=== PATIENT | male | born 1960 | race Caucasian/White ===

== ENCOUNTER 2017-01-12 08:59 | Emergency (ER) | payer OTHER ==
[~2017-01-12] VITALS: Ht 172.7 cm; Wt 79.4 kg
[~2017-01-12 08:59] MED LIST: AMIODARONE PO; ASPI81TA27 PO; Atorvastatin Calcium PO; LIS10T PO; MET25T PO; PRAS10TA PO
[2017-01-12 09:18] VITALS: BP 128/88
[2017-01-12] MEDS ORDERED: LIDOCAINE 1% HCL (LOCAL ANESTH.) INJ 20ML MDV IJ ONE (10:00)
[2017-01-12] MEDS ORDERED: cefTRIAXone SOD 1,000 MG VL IM ONE (11:00)
[2017-01-12] MEDS ORDERED: BACITRACIN TOP OINT 1 UD PKG TOP ONE (11:00)
== END 2017-01-12 11:53 | disposition home or self-care (01) ==
LOC: ER 08:59
DX: S81.811A Laceration without foreign body, right lower leg, initial encounter (principal); E78.5 Hyperlipidemia, unspecified; I10 Essential (primary) hypertension; F12.10 Cannabis abuse, uncomplicated; I25.2 Old myocardial infarction; Z90.89 Acquired absence of other organs; Z95.1 Presence of aortocoronary bypass graft; Z79.899 Other long term (current) drug therapy; V28.0XXA Motorcycle driver injured in noncollision transport accident in nontraffic accident, initial encounter; Y93.89 Activity, other specified; Y99.8 Other external cause status; Y92.89 Other specified places as the place of occurrence of the external cause
CPT/HCPCS: 12034; 73590; 96372; 99284; J0696; J2001

== ENCOUNTER 2020-04-20 12:56 | Emergency (ER) | payer MEDICAID, OTHER ==
[~2020-04-20] VITALS: Ht 172.7 cm; Wt 77.1 kg
[~2020-04-20 12:56] MED LIST changes: +AMIO200T5 PO; -AMIODARONE PO; +ASPI-543 PO; -ASPI81TA27 PO
[2020-04-20 13:02] VITALS: BP 118/65
[2020-04-20] MEDS ORDERED: MORPHINE SULFATE 4 MG/ML SYR/VIAL IV ONE (13:15)
[2020-04-20] MEDS ORDERED: NITROGLYCERIN 0.4 MG SL TAB SL ONE (13:15)
[2020-04-20] MEDS ORDERED: ONDANSETRON HCL 4 MG/2 ML VIAL IV ONE (13:15)
[2020-04-20] MEDS ORDERED: ASPirin 81 mg TAB PO ONE ×2 (13:15)
[2020-04-20 15:20] LABS: Albumin 4.2 g/dL (3.4-5.0); Anion Gap 6 (5-15); Blood Urea Nitrogen 15 mg/dL (7-18); Calcium 9.1 mg/dL (8.5-10.1); Carbon Dioxide 26 mmol/L (21-32); Chloride 105 mmol/L (98-107); Glucose 105 mg/dL (74-106); Potassium 4.6 mmol/L (3.5-5.1); Sodium 137 mmol/L (136-145)
[2020-04-20 15:23] LABS: Basophils # (auto) 0 10 ^3/uL (0-0.2); Basophils % (auto) 0.2 % (0.0-2.0); Eosinophils # (auto) 0 10 ^3/uL (0-0.8); Eosinophils % (auto) 0.3 % (0.0-7.0); Hematocrit 44.5 % (41.0-53.0); Hemoglobin 14.9 g/dL (13.5-17.5); Lymphocytes # (auto) 1.2 10 ^3/uL (0.4-5.4); Lymphocytes % (auto) 9.2 % (10.0-50.0); Mean Corpuscular Hemoglobin 31.6 pg (28.0-32.0); Mean Corpuscular Hgb Conc. 33.4 g/dL (32.0-36.0); Mean Corpuscular Volume 94.5 fL (80.0-100.0); Monocytes # (auto) 0.7 10 ^3/uL (0-1.3); Monocytes % (auto) 5.6 % (0.0-12.0); Neutrophils # (auto) 10.9 10 ^3/uL (1.6-8.6); Neutrophils % (auto) 84.7 % (37.0-80.0); Platelet Count (auto) 275 10^3/uL (140-450); Red Blood Cells 4.71 10^6/uL (4.5-5.90); Red Cell Distribution Width 12.8 % (11.8-14.3); White Blood Cell 12.9 10^3/uL (4.4-10.8)
[2020-04-20 15:35] LABS: Alanine Aminotransferase 18 U/L (16-61); Alkaline Phosphatase 63 U/L (45-117); Aspartate Aminotransferase 16 U/L (15-37); BUN/Creatinine Ratio 16.1; Bilirubin, Total 0.5 mg/dL (0.2-1.0); GFR African American 106 mL/min; GFR Non-African American 88 mL/min; Total Protein 7.2 g/dL (6.4-8.2)
[2020-04-20 16:15] LABS: INR 0.95 (0.9-1.15); Partial Thromboplastin Time 23.2 sec (23.0-31.2)
[2020-04-20] MEDS ORDERED: MORPHINE SULF INJ 2 MG/ML SYRINGE 1ML IV PRN (18:30)
[2020-04-20] MEDS ORDERED: NITROGLYCERIN 0.4 MG SL TAB SL PRN (18:30)
== END 2020-04-20 18:22 | disposition left against medical advice (07) ==
LOC: ER 12:56
DX: I24.9 Acute ischemic heart disease, unspecified (principal); I10 Essential (primary) hypertension; I25.2 Old myocardial infarction; E78.5 Hyperlipidemia, unspecified; F12.10 Cannabis abuse, uncomplicated; Z90.89 Acquired absence of other organs; Z53.29 Procedure and treatment not carried out because of patient's decision for other reasons
CPT/HCPCS: 36415; 71045; 80053; 84443; 84484; 85025; 85610; 85730; 93005

== ENCOUNTER 2024-12-14 15:25 | Emergency (ER) | payer OTHER, MEDICAID ==
[~2024-12-14] VITALS: Ht 172.7 cm; Wt 83.0 kg
[~2024-12-14 15:25] MED LIST changes: -AMIO200T5 PO; +AMIO200T50 PO
[2024-12-14 16:43] LABS: Basophils # (auto) 0.1 10 ^3/uL (0-0.2); Basophils % (auto) 0.6 % (0.0-2.0); Eosinophils # (auto) 0 10 ^3/uL (0-0.8); Hematocrit 48.4 % (41.0-53.0); Hemoglobin 16.6 g/dL (13.5-17.5); Lymphocytes # (auto) 0.6 10 ^3/uL (0.4-5.4); Lymphocytes % (auto) 4.5 % (10.0-50.0); Mean Corpuscular Hemoglobin 32.1 pg (28.0-32.0); Mean Corpuscular Hgb Conc. 34.4 g/dL (32.0-36.0); Mean Corpuscular Volume 93.4 fL (80.0-100.0); Monocytes # (auto) 0.8 10 ^3/uL (0-1.3); Monocytes % (auto) 6.2 % (0.0-12.0); Neutrophils # (auto) 12.2 10 ^3/uL (1.6-8.6); Neutrophils % (auto) 88.7 % (37.0-80.0); Nucleated Red Blood Cells % 0.1 %; Platelet Count (auto) 198 10^3/uL (140-450); Red Blood Cells 5.18 10^6/uL (4.5-5.90); Red Cell Distribution Width 12.7 % (11.8-14.3); White Blood Cell 13.7 10^3/uL (4.4-10.8)
[2024-12-14 16:53] LABS: Chloride 100 mmol/L (98-107); Potassium 4.7 mmol/L (3.5-5.1)
[2024-12-14 16:54] LABS: Anion Gap 11 (5-15); Carbon Dioxide 24 mmol/L (20-31)
[2024-12-14 16:55] LABS: Calcium 9.8 mg/dL (8.7-10.4)
[2024-12-14 16:59] LABS: Blood Urea Nitrogen 17 mg/dL (9-23)
[2024-12-14 17:00] LABS: Glucose 110 mg/dL (74-106); Sodium 135 mmol/L (136-145)
[2024-12-14] MEDS ORDERED: BACDST PO (17:46)
--- NOTE | 2024-12-14 17:47 | ED.PDOC ---
History of Present Illness HPI Comments 64-year-old male complaining of right lower leg pain. Patient states pain started two days ago. He has been having intermittent chills and fatigue. Says he noticed two areas of redness and swelling on his right lower leg. He was not remember being bit by anything does not remember any significant wound. States he was the leg is swollen and itching. Does report some pain. No drainage noted. Chief Complaint: Body Pain Time Seen by MD: 15:43 Primary Care Provider: ARVIN Reviewed Notes: Nurses Notes Allergies: Coded Allergies: NO KNOWN ALLERGIES (Unverified , 08/15/14) Home Meds Active Scripts Amiodarone Hcl (Cordarone) 200 Mg Tb, 200 MG PO Q12HR, #60 TAB Prov:WES WILKES M.D. 08/17/14 Lisinopril (ZESTRIL TABLET) 10 Mg Tb, 10 MG PO BID, #60 TAB Prov:WES WILKES M.D. 08/17/14 [Atorvastatin Calcium] 20 MG TB No Conflict Check, 20 MG PO HS, #30 TAB Prov:WES WILKES M.D. 08/17/14 Metoprolol Tartrate (Lopressor) 25 Mg Tb, 25 MG PO BID, #60 TAB Prov:WES WILKES M.D. 08/17/14 Reported Medications Lisinopril (ZESTRIL TABLET) 10 Mg Tb, 20 MG PO DAILY 04/05/15 Lisinopril (ZESTRIL TABLET) 10 Mg Tb, 1 TAB PO DAILY, #30 TAB 5 Refills 04/05/15 Prasugrel Hydrochloride (EFFIENT TABLET) 10 Mg Tb, 1 TAB PO DAILY, #90 TAB 1 Refill 04/05/15 Aspirin (Aspir-Low) 81 Mg Tab, 81 MG PO DAILY for 30 Days, MG 04/05/15 Information Source: Patient Mode of Arrival: Ambulatory Past Medical History PAST MEDICAL HISTORY: High Lipids, HTN, [place] Surgical History: Tonsillectomy Family History Family History: No family hx of DM, No family hx of Heart courtney Social History Smoker: Non-Smoker Alcohol: Denies ETOH Use Drugs: Marijuana Lives In: Home Constitutional: denies: chills, diaphoresis, fatigue, fever, malaise, sweats, weakness, others EENTM: denies: blurred vision, double vision, ear bleeding, ear discharge, ear drainage, ear pain, ear ringing, eye pain, eye redness, hearing loss, mouth pain, mouth swelling, nasal discharge, nose bleeding, nose congestion, nose pain, photophobia, tearing, throat pain, throat swelling, voice changes, others Respiratory: denies: cough, hemoptysis, orthopnea, SOB at rest, shortness of breath, SOB with excertion, stridor, wheezing, others Cardiovascular: denies: chest pain, dizzy spells, diaphoresis, Dyspnea on exertion, edema, irregular heart beat, left arm pain, lightheadedness, palpitations, PND, syncope, others Gastrointestinal: denies: abdomen distended, abdominal pain, blood streaked bowels, constipated, diarrhea, dysphagia, difficulty swallowing, hematemesis, melena, nausea, poor appetite, poor fluid intake, rectal bleeding, rectal pain, vomiting, others Genitourinary: denies: burning, dysuria, flank pain, frequency, hematuria, i ncontinence, penile discharge, penile sore, pain, testicle pain, testicle swelling, urgency, others Neurological: denies: dizziness, fainting, headache, left sided numbness, left sided weakness, numbness, paresthesia, pre-existing deficit, right sided numbness, right sided weakness, seizure, speech problems, tingling, tremors, weakness, others Musculoskeletal: denies: back pain, gout, joint pain, joint swelling, muscle pain, muscle stiffness, neck pain, others Integumetry: reports: lesions, rash, wounds; denies: bruises, change in color, change in hair/nails, dryness, laceration, lumps, others Physical Exam General Appearance: No Apparent Distress, Normal HEENT: Normal ENT Inspection, Pharynx Normal, TMs Normal Neck: Full Range of Motion, Non-Tender, Normal, Normal Inspection Respiratory: Chest Non-Tender, Lungs Clear, No Accessory Muscle Use, No Respiratory Distress, Normal Breath Sounds Cardiovascular: No Edema, No JVD, No Murmur, No Gallop, Normal Peripheral Pulses, Regular Rate/Rhythm Breast Exam: Deferred Gastrointestinal: No Organomegaly, Non Tender, No Pulsatile Mass, Normal Bowel Sounds, Soft Genitalia: Deferred Pelvic: Deferred Rectal: Deferred Extremities: No calf tenderness, Normal capillary refill, No pedal edema, Swelling (Swelling noted to the right lower extremity. There are two areas of redness with diffuse redness, no obvious lesion in the center. Areas are warm to the touch and tender to palpation. Erythemic measures approximate 5 cm x 5 cm) Musculoskeletal : Apperance: Normal Neurologic: Alert, real estate accountant II-XII nml as Tested, No Motor Deficits, Normal Affect, Normal Mood, No Sensory Deficits Cerebellar Function: Normal Reflexes: Normal Skin: Dry, Normal Color, Warm Lymphatic: No Adenopathy Was a procedure done? Was a procedure done?: No Differential Dx Considerations may include: Cellulitis, DVT, X-Ray, Labs, Meds, VS Vital Signs Date Time Temp Pulse Resp B/P (MAP) Pulse Ox O2 Delivery O2 Flow Rate FiO2 12/14/24 15:31 99.0 72 20 103/80 (88) 95 99.0 Lab Test 12/14/24 16:32 Range/Units White Blood Count 13.7 H 4.4-10.8 10^3/uL Red Blood Count 5.18 4.5-5.90 10^6/uL Hemoglobin 16.6 13.5-17.5 g/dL Hematocrit 48.4 41.0-53.0 % Mean Corpuscular Volume 93.4 80.0-100.0 fL Mean Corpuscular Hemoglobin 32.1 H 28.0-32.0 pg Mean Corpuscular Hemoglobin Concent 34.4 32.0-36.0 g/dL Red Cell Distribution Width 12.7 11.8-14.3 % Platelet Count 198 140-450 10^3/uL Mean Platelet Volume 7.8 6.9-10.8 fL Neutrophils (%) (Auto) 88.7 H 37.0-80.0 % Lymphocytes (%) (Auto) 4.5 L 10.0-50.0 % Monocytes (%) (Auto) 6.2 0.0-12.0 % Eosinophils (%) (Auto) 0.0 0.0-7.0 % Basophils (%) (Auto) 0.6 0.0-2.0 % Neutrophils # (Auto) 12.2 H 1.6-8.6 10 ^3/uL Lymphocytes # (Auto) 0.6 0.4-5.4 10 ^3/uL Monocytes # (Auto) 0.8 0-1.3 10 ^3/uL Eosinophils # (Auto) 0 0-0.8 10 ^3/uL Basophils # (Auto) 0.1 0-0.2 10 ^3/uL Nucleated Red Blood Cells 0.1 % Sodium Level 135 L 136-145 mmol/L Potassium Level 4.7 3.5-5.1 mmol/L Chloride Level 100 98-107 mmol/L Carbon Dioxide Level 24 20-31 mmol/L Anion Gap 11 5-15 Blood Urea Nitrogen 17 9-23 mg/dL Creatinine 1.06 0.700-1.30 mg/dL Glomerular Filtration Rate Calc 77 >90 mL/min BUN/Creatinine Ratio 16.0 10.0-20.0 Serum Glucose 110 H 74-106 mg/dL Calcium Level 9.8 8.7-10.4 mg/dL X-Ray, Labs, Meds, VS Comment Imaging: X-rays and CT scans were reviewed and interpreted by this provider, imaging shows no fractures and no pathological disease. Pending radiology review. Laboratory: Labs reviewed and interpreted by this provider. No significant abnormalities noted. Patient has prior medical visits reviewed. Med reconciliation performed Vital signs reviewed Time of 1ST Reevaluation: 17:46 Reevaluation 1ST: Improved Patient Education/Counseling: Diagnosis, Treatment, Need For Follow Up (Follow up in the emergency department in the next 24-48 hours if symptoms worsen. It was advised to follow up with your primary care doctor in the next 3-4 days for further evaluation.) Family Education/Counseling: Diagnosis, Treatment Departure 1 Departure Time of Disposition: 17:46 Impression: Primary Impression: Cellulitis Qualified Codes: L03.115 - Cellulitis of right lower limb Disposition: HOME / SELF CARE / HOMELESS Condition: Fair e-Prescriptions Sulfamethoxazole W/Trimethopri (Bactrim Ds Tablet) 1 Tab Tb 1 TAB PO BID for 7 Days, #14 TAB Prov: AMRITA PEREZ 12/14/24 Discharged With: Self Critical Care Note Critical Care Time?: No Stability Stability form required: No Heart Score Heart Score: Heart Score Response (Comments) Value History N/A 0 EKG N/A 0 Age N/A 0 Risk Factors N/A 0 Troponin N/A 0 Total 0 AMRITA PEREZP December 14, 2024 17:47
[2024-12-14 18:34] VITALS: BP 138/78; PULSE 89; RESP 16; TEMP 98.5; O2SAT 98
[2024-12-14] MEDS: KETOROLAC TROMETH 30 MG/ML 1ML VIAL IM ONE (18:34)
== END 2024-12-14 18:44 | disposition home or self-care (01) ==
LOC: ER 15:29
DX: L03.115 Cellulitis of right lower limb (principal); F12.90 Cannabis use, unspecified, uncomplicated; E78.5 Hyperlipidemia, unspecified; I10 Essential (primary) hypertension; I25.2 Old myocardial infarction; Z90.89 Acquired absence of other organs; Z79.899 Other long term (current) drug therapy; Z79.82 Long term (current) use of aspirin; Z79.02 Long term (current) use of antithrombotics/antiplatelets
CPT/HCPCS: 36415; 80048; 85025; 96372; 99283; J1885

== ENCOUNTER 2024-12-24 04:52 | Inpatient (IN) | payer OTHER, MEDICAID ==
[~2024-12-24] VITALS: Ht 172.7 cm; Wt 84.4 kg
[~2024-12-24 04:52] MED LIST changes: +BACDST PO
--- NOTE | 2024-12-24 05:09 | ED.PDOC ---
Musculoskeletal HPI Comments 64 year old male came to ER for right lower extremity swelling. Patient was seen here 10 days ago, and was diagnosed of cellulitis of the right lower leg. Patient was sent home with Bactrim ds. Patient has finished taking the medications, however cellulitis, swelling of redness of the right lower leg has persisted. Noted also to have headaches but denies any fever. Chief Complaint: Lower extremity Time Seen by MD: 05:08 Primary Care Provider: ARVIN Reviewed Notes: Nurses Notes Allergies: Coded Allergies: NO KNOWN ALLERGIES (Unverified , 08/15/14) Home Meds Active Scripts Sulfamethoxazole W/Trimethopri (Bactrim Ds Tablet) 1 Tab Tb, 1 TAB PO BID for 7 Days, #14 TAB Prov:AMRITA PEREZ 12/14/24 Amiodarone Hcl (Cordarone) 200 Mg Tb, 200 MG PO Q12HR, #60 TAB Prov:WES WILKES M.D. 08/17/14 Lisinopril (ZESTRIL TABLET) 10 Mg Tb, 10 MG PO BID, #60 TAB Prov:WES WILKES M.D. 08/17/14 [Atorvastatin Calcium] 20 MG TB No Conflict Check, 20 MG PO HS, #30 TAB Prov:WES WILKES M.D. 08/17/14 Metoprolol Tartrate (Lopressor) 25 Mg Tb, 25 MG PO BID, #60 TAB Prov:WES WILKES M.D. 08/17/14 Reported Medications Lisinopril (ZESTRIL TABLET) 10 Mg Tb, 20 MG PO DAILY 04/05/15 Lisinopril (ZESTRIL TABLET) 10 Mg Tb, 1 TAB PO DAILY, #30 TAB 5 Refills 04/05/15 Prasugrel Hydrochloride (EFFIENT TABLET) 10 Mg Tb, 1 TAB PO DAILY, #90 TAB 1 Refill 04/05/15 Aspirin (Aspir-Low) 81 Mg Tab, 81 MG PO DAILY for 30 Days, MG 04/05/15 Information Source: Patient Mode of Arrival: Ambulatory Location: Right Extremity Location: Leg Timing: Days Prehospital treatment: None Severity: Moderate Able to Move Extremity: Yes Bear Weight: Limited Pain: Moderate Hand Dominance: Right Mechanism: Spontaneous Circumstances: Spontaneous Onset of Symptoms: Spontaneous Symptoms: Swelling, Pain Associated signs and symptoms: Leg pain (Right) Past Medical History PAST MEDICAL HISTORY: High Lipids, HTN, [place] Surgical History: Tonsillectomy Family History Family History: No family hx of DM, No family hx of Heart courtney Social History Smoker: Non-Smoker Alcohol: Denies ETOH Use Drugs: Marijuana Lives In: Home Constitutional: denies: chills, diaphoresis, fatigue, fever, malaise, sweats, weakness, others EENTM: denies: blurred vision, double vision, ear bleeding, ear discharge, ear drainage, ear pain, ear ringing, eye pain, eye redness, hearing loss, mouth pain, mouth swelling, nasal discharge, nose bleeding, nose congestion, nose pain, photophobia, tearing, throat pain, throat swelling, voice changes, others Respiratory: denies: cough, hemoptysis, orthopnea, SOB at rest, shortness of breath, SOB with excertion, stridor, wheezing, others Cardiovascular: denies: chest pain, dizzy spells, diaphoresis, Dyspnea on exertion, edema, irregular heart beat, left arm pain, lightheadedness, palpitations, PND, syncope, others Gastrointestinal: denies: abdomen distended, abdominal pain, blood streaked bowels, constipated, diarrhea, dysphagia, difficulty swallowing, hematemesis, melena, nausea, poor appetite, poor fluid intake, rectal bleeding, rectal pain, vomiting, others Genitourinary: denies: burning, dysuria, flank pain, frequency, hematuria, incontinence, penile discharge, penile sore, pain, testicle pain, testicle swelling, urgency, others Neurological: denies: dizziness, fainting, headache, left sided numbness, left sided weakness, numbness, paresthesia, pre-existing deficit, right sided num bness, right sided weakness, seizure, speech problems, tingling, tremors, weakness, others Musculoskeletal: reports: muscle pain (Right lower leg swelling and redness); denies: back pain, gout, joint pain, joint swelling, muscle stiffness, neck pain, others Integumetry: denies: bruises, change in color, change in hair/nails, dryness, laceration, lesions, lumps, rash, wounds, others Allergic/Immunocompromised: denies: Difficulty Healing, Frequent Infections, Hives, Itching, others Hematologic/Lymphatic: denies: anemia, blood clots, easy bleeding, easy bruising, swollen glands, others Endocrine: denies: excessive hunger, excessive sweating, excessive thirst, excessive urination, flushing, intolerance to cold, intolerance to heat, unexplained weight gain, unexplained weight loss, others Psychiatric: denies: anxiety, bipolar disorder, depression, hopeless, panic disorder, schizophrenia, sleepless, suicidal, others Physical Exam General Appearance: No Apparent Distress, Normal HEENT: Normal ENT Inspection, Pharynx Normal, TMs Normal Neck: Full Range of Motion, Non-Tender, Normal, Normal Inspection Respiratory: Chest Non-Tender, Lungs Clear, No Accessory Muscle Use, No Respiratory Distress, Normal Breath Sounds Cardiovascular: No Edema, No JVD, No Murmur, No Gallop, Normal Peripheral Pulses, Regular Rate/Rhythm Breast Exam: Deferred Gastrointestinal: No Organomegaly, Non Tender, No Pulsatile Mass, Normal Bowel Sounds, Soft Genitalia: Deferred Pelvic: Deferred Rectal: Deferred Extremities: No calf tenderness, Normal capillary refill, Normal inspection, Normal range of motion, Non-tender, No pedal edema Musculoskeletal : Apperance: Normal Neurologic: Alert, 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 Was a procedure done?: No Differential Diagnosis EXT Differential Diagnosis: Cellulitis, Deep Vein Thrombosis, Septic X-Ray, Labs, Meds, VS Vital Signs Date Time Temp Pulse Resp B/P (MAP) Pulse Ox O2 Delivery O2 Flow Rate FiO2 12/24/24 05:07 97.8 72 16 158/100 (119) 97 97.8 Lab Test 12/24/24 05:12 Range/Units White Blood Count Pending Red Blood Count Pending Hemoglobin Pending Hematocrit Pending Mean Corpuscular Volume Pending Mean Corpuscular Hemoglobin Pending Mean Corpuscular Hemoglobin Concent Pending Red Cell Distribution Width Pending Platelet Count Pending Mean Platelet Volume Pending Neutrophils (%) (Auto) Pending Lymphocytes (%) (Auto) Pending Monocytes (%) (Auto) Pending Basophils (%) (Auto) Pending Neutrophils # (Auto) Pending Lymphocytes # (Auto) Pending Monocytes # (Auto) Pending Prothrombin Time Pending Prothrombin Time INR Pending Activated Partial Thromboplast Time Pending Sodium Level Pending Potassium Level Pending Chloride Level Pending Carbon Dioxide Level Pending Anion Gap Pending Blood Urea Nitrogen Pending Creatinine Pending Glomerular Filtration Rate Calc Pending BUN/Creatinine Ratio Pending Serum Glucose Pending Lactic Acid Level Pending Calcium Level Pending Total Bilirubin Pending Aspartate Amino Transferase (AST) Pending Alanine Aminotransferase (ALT) Pending Alkaline Phosphatase Pending Total Protein Pending Albumin Pending Time of 1ST Reevaluation: 05:05 Reevaluation 1ST: Unchanged Patient Education/Counseling: Diagnosis, Treatment Family Education/Counseling: No Family Present Sepsis focused exam: focus exam completed (In the initial resuscitation at least 30 mL/kg of IV crystalloid fluid was NOT given within the first 3 hr due to concerns of fluid overload), time: (529) Sepsis Sepsis Reasesment Focused Exam Sepsis focused exam: focus exam completed (In the initial resuscitation at least 30 mL/kg of IV crystalloid fluid was NOT given within the first 3 hr due to concerns of fluid overload), time: (539) Departure 1 Departure Time of Disposition: 06:47 Impression: Primary Impression: Cellulitis Disposition: 09 ADMITTED INPATIENT Condition: Guarded Discharged With: Self Comments Right Lower Extremity Cellulitis Chief Complaint: Right lower leg swelling, redness, and pain History of Present Illness: 64-year-old male presents with a 2-week history of right lower extremity swelling below the knee with associated redness and tenderness. Patient recently completed a course of oral antibiotics (Bactrim DS) as an outpatient, but continues to have significant swelling, pain, and tenderness of the right lower leg. There is a small area of skin breakdown noted on the right distal lower leg. Symptoms have persisted despite completion of outpatient oral antibiotic therapy. Review of Systems: Limited review of systems due to focused evaluation. 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 Allergies: No known allergies documented Past Medical History: Hypertension Congestive Heart Failure (CHF) History of cardiac stents Physical Exam: Right Lower Extremity: - Significant swelling below the knee - Erythema and induration present - Tenderness to palpation - Small area of skin breakdown on right distal lower leg Lab Results: WBC: 8.3 (normal) Imaging and Other Relevant Results: No imaging studies documented Medical Decision Making: Summary Statement: 64-year-old male with significant medical history of CHF and cardiac stents presents with worsening right lower extremity cellulitis despite outpatient oral antibiotic therapy. Problem List: 1. Complicated cellulitis of right lower leg 2. Hypertension 3. CHF 4. History of cardiac stents Differential Diagnosis: 1. Cellulitis 2. Deep vein thrombosis 3. Lymphedema 4. Venous stasis dermatitis ED Course: Patient received IV fluids, IV Zosyn, and IV vancomycin. Given failure of outpatient therapy and presence of skin breakdown, decision made to admit for IV antibiotics and wound care. Assessment and Plan: 1. Complicated cellulitis of right lower extremity: - Failed outpatient oral antibiotic therapy - Initiated broad-spectrum IV antibiotics (Zosyn and vancomycin) - Admit to hospital for continued IV antibiotics and wound care - Monitor for clinical improvement 2. Cardiovascular comorbidities (HTN, CHF, h/o cardiac stents): - Continue home medications - Monitor fluid status given CHF history Billing Information: ICD-10: L03.115 - Cellulitis of right lower limb Critical Care Note Critical Care Time?: No Stability Stability form required: No Heart Score Heart Score: Heart Score Response (Comments) Value History N/A 0 EKG N/A 0 Age N/A 0 Risk Factors N/A 0 Troponin N/A 0 Total 0 I personally scribed for REVA JAMISON MD ([email or web address]) on 12/24/24 at 05:09. Electronically submitted by Keaton Mckeon ([email or web address]). REVA JAMISON MD December 24, 2024 05:09
--- NOTE | 2024-12-24 05:32 | DVH ---
XY R TIB FIB XRAY INDICATION: pain swelling redness TECHNICAL DATA: Frontal and lateral views were obtained of the right tibia/ fibula. COMPARISON: None FINDINGS: There is no osseous abnormality. Medial compartment joint space narrowing. Soft tissues are normal. IMPRESSION: 1. No acute fracture or dislocation.
[2024-12-24 05:42] LABS: Albumin 4.2 g/dL (3.2-4.8); Alkaline Phosphatase 86 U/L (46-116); Anion Gap 10 (5-15); BUN/Creatinine Ratio 17.1 (10.0-20.0); Blood Urea Nitrogen 14 mg/dL (9-23); Carbon Dioxide 26 mmol/L (20-31); Chloride 105 mmol/L (98-107); Glucose 97 mg/dL (74-106); Potassium 4.1 mmol/L (3.5-5.1); Sodium 141 mmol/L (136-145); Total Protein 6.6 g/dL (5.7-8.2)
[2024-12-24 05:43] LABS: INR 0.94 (0.9-1.15)
[2024-12-24 05:48] LABS: Basophils # (auto) 0.2 10 ^3/uL (0-0.2); Basophils % (auto) 2.9 % (0.0-2.0); Eosinophils # (auto) 0.4 10 ^3/uL (0-0.8); Eosinophils % (auto) 5.3 % (0.0-7.0); Hematocrit 44.2 % (41.0-53.0); Hemoglobin 15.2 g/dL (13.5-17.5); Lymphocytes # (auto) 2.5 10 ^3/uL (0.4-5.4); Lymphocytes % (auto) 30.3 % (10.0-50.0); Mean Corpuscular Hemoglobin 31.6 pg (28.0-32.0); Mean Corpuscular Hgb Conc. 34.3 g/dL (32.0-36.0); Mean Corpuscular Volume 92.1 fL (80.0-100.0); Monocytes # (auto) 0.9 10 ^3/uL (0-1.3); Monocytes % (auto) 11.1 % (0.0-12.0); Neutrophils # (auto) 4.2 10 ^3/uL (1.6-8.6); Neutrophils % (auto) 50.4 % (37.0-80.0); Nucleated Red Blood Cells % 0.1 %; Platelet Count (auto) 468 10^3/uL (140-450); White Blood Cell 8.3 10^3/uL (4.4-10.8)
[2024-12-24 05:52] LABS: Alanine Aminotransferase 53 U/L (7-40); Aspartate Aminotransferase 44 U/L (13-40); Bilirubin, Total 0.3 mg/dL (0.2-1.0); Calcium 8.6 mg/dL (8.7-10.4)
[2024-12-24] MEDS: SODIUM CHLORIDE 0.9% 1,000 ML IVB ONE (05:55)
[2024-12-24] MEDS: PIPERACILLIN-TAZOB 3.375GM 100 ML IV ONE (05:55)
--- NOTE | 2024-12-24 06:59 | DVH ---
EXAM: US Duplex Right Lower Extremity Veins CLINICAL INDICATION: Right calf pain and swelling TECHNIQUE: Real-time duplex ultrasound scan of the right lower extremity veins integrating B-mode tw o-dimensional vascular structure, Doppler spectral analysis, color flow Doppler imaging and compressi on. COMPARISON: None FINDINGS: DEEP VEINS: Unremarkable. No DVT in the visualized common femoral, femoral, proximal deep femoral or popliteal veins. The veins demonstrate normal color flow, are normally compressible, with normal phasic flow and/or augmentation response. SUPERFICIAL VEINS: Unremarkable. No thrombus in the visualized great saphenous vein. SOFT TISSUES: No acute findings. No popliteal cyst. OTHER FINDINGS: . IMPRESSION: No DVT.
[2024-12-24 07:24] VITALS: PULSE 68; RESP 12; O2SAT 98
[2024-12-24] MEDS ORDERED: CARV3.1240 PO (07:29)
[2024-12-24] MEDS ORDERED: BENA-36 PO (07:29)
[2024-12-24] MEDS: VANCOMYCIN 1GM/200ML PM 200 ML IV ONE (07:29)
[2024-12-24] MEDS ORDERED: EMPA1TAB PO (07:29)
[2024-12-24] MEDS ORDERED: VANCOMYCIN PER PHARMACY 0 MG IV SCH (07:30)
[2024-12-24] MEDS ORDERED: HYDROcodone-ACET 5/325MG TAB PO PRN (07:30)
[2024-12-24] MEDS ORDERED: ONDANSETRON HCL 4 MG/2 ML VIAL IV PRN (07:30)
[2024-12-24] MEDS ORDERED: MORPHINE SULFATE INJ 2 MG/ml SYRG IV PRN (07:30)
--- NOTE | 2024-12-24 07:37 | DVHHP2 ---
History of Present Illness Reason for Visit: Right lower extremity pain History of Present Illness Adalberto Austin is a 64-year-old male with past medical history of CAD status post PTCA x3 in 2014, IA, hypertension, hyperlipidemia,? Diabetes, tonsillectomy, and back surgery who presents to the ED with right lower extremi ty redness and swelling. Patient reports that he was here 10 days ago for the same issue. He states that it started when he had gone into the [facility] at 12:00 p.m. fitness with a cut on his leg. He does state that the pain is 1/10 but does go up to a 3 or 4. He states that he is able to still ambulate with no issues. He also reports that he is compliant with his medications. Patient denies any chest pain, shortness of breath, fever, chills, lightheadedness, weakness, dizziness, urinary symptoms, abdominal pain, nausea, vomiting, diarrhea, recent trauma or injury, recent sick contacts, or recent travels. Patient reports that he is disabled due to his back and knees. Cardiovascular: CAD, HTN, IA, hyperipidemia Endocrine: Diabetes Past Surgical History: Other (PTCA x3 in 2015 and back surgery), Tonsillectomy Family History: DM, Other (Dad with heart disease and mom with diabetes) Smoke: No ALCOHOL: none Drugs: Other (Quit marijuana 5 years ago) Lives: Alone Domestic Violence: Neg Review of Systems Musculoskeletal: leg pain Allergies: Coded Allergies: NO KNOWN ALLERGIES (Unverified , 08/15/14) Medications Current Medications Medications Dose Ordered Sig/Amado Route Start Time Stop Time Status Last Admin Dose Admin Acetaminophen/ Hydrocodone Bitart 1 tab Q4HP PRN PO 12/24/24 07:30 UNV Ondansetron HCl 4 mg Q4HP PRN IV 12/24/24 07:30 UNV Enoxaparin Sodium 40 mg DAILY SC 12/24/24 10:00 UNV Acetaminophen 650 mg Q6HP PRN PO 12/24/24 07:30 UNV Morphine Sulfate 2 mg Q4HPRN PRN IV 12/24/24 07:30 UNV Vancomycin HCl 0 ml @ 0 mls/hr UD IV 12/24/24 07:30 UNV Exam Vital Signs Vital Signs Date Time Temp Pulse Resp B/P (MAP) Pulse Ox O2 Delivery O2 Flow Rate FiO2 12/24/24 07:24 68 12 98 Room Air* 0 21 12/24/24 07:23 98.1 154/89 (110) 98.1 General Appearance: Alert, Oriented X3, Cooperative, No acute distress HEENT: Atraumatic, PERRLA, EOMI, Mucous membr. moist/pink Respiratory: Clear to auscultation, Normal air movement Cardiovascular: Regular rate, Normal S1, Normal S2, No murmurs Abdominal: Normal bowel sounds, Soft, No tenderness, No hepatospenomegaly, No masses Extremities: No clubbing, No cyanosis, Other (Right lower extremity erythema) Neuro: Normal speech, Strength at 5/5 X4 ext, Normal tone, Sensation intact Psych/Mental Status: Mental status NL, Mood NL Labs/Xrays Labs Test 12/24/24 05:12 Range/Units White Blood Count 8.3 4.4-10.8 10^3/uL Red Blood Count 4.80 4.5-5.90 10^6/uL Hemoglobin 15.2 13.5-17.5 g/dL Hematocrit 44.2 41.0-53.0 % Mean Corpuscular Volume 92.1 80.0-100.0 fL Mean Corpuscular Hemoglobin 31.6 28.0-32.0 pg Mean Corpuscular Hemoglobin Concent 34.3 32.0-36.0 g/dL Red Cell Distribution Width 13.0 11.8-14.3 % Platelet Count 468 H 140-450 10^3/uL Mean Platelet Volume 7.0 6.9-10.8 fL Neutrophils (%) (Auto) 50.4 37.0-80.0 % Lymphocytes (%) (Auto) 30.3 10.0-50.0 % Monocytes (%) (Auto) 11.1 0.0-12.0 % Eosinophils (%) (Auto) 5.3 0.0-7.0 % Basophils (%) (Auto) 2.9 H 0.0-2.0 % Neutrophils # (Auto) 4.2 1.6-8.6 10 ^3/uL Lymphocytes # (Auto) 2.5 0.4-5.4 10 ^3/uL Monocytes # (Auto) 0.9 0-1.3 10 ^3/uL Eosinophils # (Auto) 0.4 0-0.8 10 ^3/uL Basophils # (Auto) 0.2 0-0.2 10 ^3/uL Nucleated Red Blood Cells 0.1 % Prothrombin Time 10.0 9.3-11.8 sec Prothrombin Time INR 0.94 0.9-1.15 Activated Partial Thromboplast Time 25.0 24.5-34.5 SEC Sodium Level 141 136-145 mmol/L Potassium Level 4.1 3.5-5.1 mmol/L Chloride Level 105 98-107 mmol/L Carbon Dioxide Level 26 20-31 mmol/L Anion Gap 10 5-15 Blood Urea Nitrogen 14 9-23 mg/dL Creatinine 0.82 0.700-1.30 mg/dL Glomerular Filtration Rate Calc 97 >90 mL/min BUN/Creatinine Ratio 17.1 10.0-20.0 Serum Glucose 97 74-106 mg/dL Lactic Acid Level 1.8 0.4-2.0 mmol/L Calcium Level 8.6 L 8.7-10.4 mg/dL Total Bilirubin 0.3 0.2-1.0 mg/dL Aspartate Amino Transferase (AST) 44 H 13-40 U/L Alanine Aminotransferase (ALT) 53 H 7-40 U/L Alkaline Phosphatase 86 46-116 U/L Total Protein 6.6 5.7-8.2 g/dL Albumin 4.2 3.2-4.8 g/dL XY R TIB FIB XRAY INDICATION: pain swelling redness TECHNICAL DATA: Frontal and lateral views were obtained of the right tibia/ fibula. COMPARISON: None FINDINGS: There is no osseous abnormality. Medial compartment joint space narrowing. Soft tissues are normal. IMPRESSION: 1. No acute fracture or dislocation. EXAM: US Duplex Right Lower Extremity Veins CLINICAL INDICATION: Right calf pain and swelling TECHNIQUE: Real-time duplex ultrasound scan of the right lower extremity veins integrating B-mode two-dimensional vascular structure, Doppler spectral analysis, color flow Doppler imaging and compression. COMPARISON: None FINDINGS: DEEP VEINS: Unremarkable. No DVT in the visualized common femoral, femoral, proximal deep femoral or popliteal veins. The veins demonstrate normal color flow, are normally compressible, with normal phasic flow and/or augmentation response. SUPERFICIAL VEINS: Unremarkable. No thrombus in the visualized great saphenous vein. SOFT TISSUES: No acute findings. No popliteal cyst. OTHER FINDINGS: . IMPRESSION: No DVT. Assessment/Plan Assessment/Plan Assessment Lower extremity pain and swelling likely cellulitis History of CAD status post PTCA x3 in 2015 History of IA History of hypertension History of hyperlipidemia ? History of diabetes History of tonsillectomy History of back surgery History of marijuana use quit 5 years ago Plan Admit to med surge Antiemetics Pain management IV antibiotics-vancomycin +Zosyn NS given ED Right lower extremity venous ultrasound noted X-ray right tib-fib noted Lactic noted Blood cultures PT/PTT Hemoglobin A1c Wound culture with Gram stain Diet Home medications reconciled DVT prophylaxis-patient on Prasugrel PUD prophylaxis-not indicated no history of GERD or GI bleed Discussed plan of care with patient and nurse Counseled on continuance of cessation of marijuana use Plan discussed with: Patient My Orders Orders - ELI CRAIG Procedure Category Date Status Time Admit ADMIT 12/24/24 Transmitted 07:26 Allergies JULIANNE 12/24/24 In Process 07:26 Code Status CODE 12/24/24 Transmitted 07:26 Hydrocodone-Acet PHA 12/24/24 Logged 5/325mg Tab ([place] 07:30 Ondansetron Hcl PHA 12/24/24 Logged (Zofran) 07:30 Enoxaparin Sodium PHA 12/24/24 Logged (Lovenox) 10:00 Complete Blood Count LAB 12/25/24 Verified 04:00 Comprehensive LAB 12/25/24 Verified Metabolic Panel 04:00 Acetaminophen Tablet PHA 12/24/24 Logged (Tylenol Tablet) 07:30 Morphine Sulfate PHA 12/24/24 Logged Injection 07:30 Hemoglobin A1c LAB 12/24/24 Logged 07:26 Vancomycin Per PHA 12/24/24 Logged Pharmacy 07:30 Zosyn Extended PHA 12/24/24 Transmitted Infusion 14:00 Wound Culture W/ Gs JOSE 12/24/24 Logged 07:26 Amiodarone Tablet PHA 12/24/24 Verified (Cordarone Tablet) 10:00 Aspirin Enteric PHA 12/24/24 Verified Coated Tablet 10:00 Prasugrel Hcl Tablet PHA 12/24/24 Verified (Effient Tablet) 10:00 (Nf) [Atorvastatin PHA 12/24/24 Verified Calcium] 22:00 Date of Service: December 24, 2024 Billing Provider: ELI CRAIG Common Visit Codes: [id number] INP/OBS CARE (HIGH) ELI CRAIG December 24, 2024 07:37
[2024-12-24 07:40] LABS: Urine Bacteria None Seen /hpf (None Seen)
[2024-12-24 08:19] LABS: Urine Blood Negative /uL (Negative); Urine Clarity Clear (Clear); Urine Color Light-Yellow (Yellow); Urine Protein, UAD Negative (Negative); Urine Specific Gravity 1.024 (1.001-1.035); Urine Squamous Epithelial Cell None Seen /hpf (<5); Urine Urobilinogen Normal (Negative); Urine WBC 1 /HPF (0-3); Urine pH 5.5 (5.0-9.0)
[2024-12-24] MEDS ORDERED: PRASUGREL HCL 10 MG TAB PO SCH (10:00)
[2024-12-24] MEDS ORDERED: ENOXAPARIN SOD 40 MG/0.4 ML SYRINGE SC SCH (10:00)
[2024-12-24] MEDS ORDERED: AMIODARONE HCL 200 MG TAB PO SCH (10:00)
[2024-12-24] MEDS: ASPirin-EC 81 mg tab PO SCH (10:17)
[2024-12-24 12:44] VITALS: BP 127/73; PULSE 72; RESP 15; TEMP 98; O2SAT 97
[2024-12-24 13:20] VITALS: BP 127/73; PULSE 72; RESP 18; TEMP 98; O2SAT 97
--- NOTE | 2024-12-24 13:55 | DVHPN2 ---
Assessment/Plan Assessment/Plan Progress note 64 M with CAD s/p PCI (2014), HTN, HLD with prior ED visit with cellulitis, was given bactrim with no improvement. Reported prior bathtub use Physical exam AOx3 but occasionally tangential normal JVD PERLLA MMM Clear breath sounds S1 S2 RRR bradycardic Abdomen soft nontender RLE diffuse erythema and swelling to upper calf, no clear border Erossion with scab on upper ankle, clean looking Skin breaks between toes LLE wnl labs ekg imaging reviewed assessment and plan R LE celulitis mild transaminitis CAD s/p ANTOINE 2014 HTN HLD resume home meds wound culture MRSA swab blood culture empiric coverage vanc zosyn pain management diet cardiac dvt ppx lovenox full code Plan discussed with: Patient Date of Service: December 24, 2024 Billing Provider: PHYLLIS ULRICH MD Common Visit Codes: [id number] INP/OBS CARE(HIGH) PHYLLIS ULRICH MD December 24, 2024 13:55
[2024-12-24] MEDS: PIPERACILLIN-TAZOB 3.375GM 100 ML IV SCH (13:59)
[2024-12-24 17:50] VITALS: BP 150/87; PULSE 114; RESP 20; TEMP 98.2; O2SAT 98
[2024-12-24 21:19] VITALS: BP 134/83; PULSE 68; RESP 20; TEMP 98.6; O2SAT 96
[2024-12-24 21:30] VITALS: RESP 18; O2SAT 98
[2024-12-24] MEDS: ATORVASTATIN 20 MG TAB PO SCH (22:21)
[2024-12-24] MEDS: VANCOMYCIN 1.25gm/250mL PREMIX or KIT IV SCH (23:19)
[2024-12-25] VITALS (8 sets, daily range): BP systolic 111–138; BP diastolic 65–80; PULSE 63–71; RESP 17–20; TEMP 97.7–98.4; O2SAT 96–98
[2024-12-25] MEDS: ACETAMINOPHEN 325 MG TAB PO PRN (04:55)
[2024-12-25 06:57] LABS: Hematocrit 42.1 % (41.0-53.0); Hemoglobin 14.7 g/dL (13.5-17.5); Mean Corpuscular Hemoglobin 31.9 pg (28.0-32.0); Mean Corpuscular Volume 91.4 fL (80.0-100.0); Platelet Count (auto) 399 10^3/uL (140-450); Red Blood Cells 4.61 10^6/uL (4.5-5.90); Red Cell Distribution Width 12.9 % (11.8-14.3); White Blood Cell 6.7 10^3/uL (4.4-10.8)
[2024-12-25 07:12] LABS: Alkaline Phosphatase 72 U/L (46-116); Anion Gap 9 (5-15); BUN/Creatinine Ratio 16.7 (10.0-20.0); Blood Urea Nitrogen 14 mg/dL (9-23); Calcium 9.5 mg/dL (8.7-10.4); Carbon Dioxide 27 mmol/L (20-31); Chloride 102 mmol/L (98-107); Glucose 94 mg/dL (74-106); Potassium 4.1 mmol/L (3.5-5.1); Sodium 138 mmol/L (136-145); Total Protein 6.3 g/dL (5.7-8.2)
[2024-12-25 07:13] LABS: Aspartate Aminotransferase 40 U/L (13-40); Bilirubin, Total 0.4 mg/dL (0.2-1.0)
[2024-12-25 07:18] LABS: Alanine Aminotransferase 53 U/L (7-40)
[2024-12-25 07:23] LABS: Basophils % (manual) 0 (0.0-2.0); Blast Cells 0; Metamyelocytes % 0; Myelocytes % 0; Promyelocytes % 0
[2024-12-25 08:33] LABS: Band Neutrophils % (manual) 6; Eosinophils % (manual) 7 (0-7); Lymphocytes % (manual) 29 (10.0-50.0); Monocytes % (manual) 9 (0-12); Platelet Estimate Adequate; RBC Morphology Normal; Reactive Lymphocytes 2
--- NOTE | 2024-12-25 11:58 | DVHPN2 ---
Reviewed: Care Plan, H&P, Labs, Medications, Previous Orders, Radiology Changes from previous H/P or p: No Changes Musculoskeletal: leg pain Objective Vitals Vital Signs Date Time Temp Pulse Resp B/P (MAP) Pulse Ox O2 Delivery O2 Flow Rate FiO2 12/25/24 08:42 97.9 63 17 125/71 (89) 96 97.9 12/24/24 21:30 Room Air* 0 21 Intake/Output Intake and Output 12/25/24 07:00 Intake Total 440 ml Output Total 150 ml Balance 290 ml Intake Oral 240 ml IV Total 200 ml Output Urine Total 150 ml Medications Current Medications Medications Dose Ordered Sig/Amado Route Start Time Stop Time Status Last Admin Dose Admin Acetaminophen 650 mg Q6HP PRN PO 12/24/24 07:30 12/25/24 04:55 650 MG Vancomycin HCl 0 ml @ 0 mls/hr UD IV 12/24/24 07:30 Piperacillin Sod/ Tazobactam Sod 100 ml @ 25 mls/hr Q8HR IV 12/24/24 14:00 12/25/24 05:43 25 MLS/HR Aspirin 81 mg DAILY PO 12/24/24 10:00 12/25/24 09:43 81 MG Prasugrel 10 mg DAILY PO 12/24/24 10:00 Hold Atorvastatin Calcium 20 mg HS PO 12/24/24 22:00 12/24/24 22:21 20 MG Vancomycin HCl 250 ml @ 200 mls/hr Q12H IV 12/24/24 23:00 12/25/24 09:44 200 MLS/HR Laboratory Results Laboratory Tests 12/25/24 06:07 Chemistry Test 12/25/24 06:07 Albumin 4.0 g/dL (3.2-4.8) Calcium Level 9.5 mg/dL (8.7-10.4) Total Protein 6.3 g/dL (5.7-8.2) LFT Test 12/25/24 06:07 Alanine Aminotransferase (ALT) 53 U/L (7-40) H Alkaline Phosphatase 72 U/L (46-116) Aspartate Amino Transferase (AST) 40 U/L (13-40) Total Bilirubin 0.4 mg/dL (0.2-1.0) Urinalysis Test 12/24/24 07:35 Urine Color Light-yellow (Yellow) Urine Clarity Clear (Clear) Urine pH 5.5 (5.0-9.0) Urine Specific [place] 1.024 (1.001-1.035) Urine Protein Negative (Negative) Urine Ketones Negative (Negative) Urine Blood Negative /uL (Negative) Urine Nitrite Negative (Negative) Urine Bilirubin Negative (Negative) Urine Urobilinogen Normal mg/dL (Negative) Urine Leukocyte Esterase Negative /uL (Negative) Urine RBC 1 /hpf (0 - 3) Urine Microscopic WBC 1 /HPF (0-3) Urine Squamous Epithelial Cells None seen /hpf (<5) Urine Bacteria None seen /hpf (None Seen) Urine Glucose 4+ mg/dL (Normal) H Microbiology Microbiology Date/Time Source Procedure Growth Status 12/24/24 07:55 Leg Right Gram Stain Pending Resulted 12/24/24 07:55 Leg Right Wound Culture - Preliminary Resulted 12/24/24 05:12 Blood Blood Culture - Preliminary NO GROWTH AFTER 24 HOURS OF INCUBATION. Resulted Labs and/or images reviewed: Labs reviewed by me, Image(s) reviewed by me Assessment/Plan Assessment/Plan Covering for Dr Karan HE celulitis: Blood cultures negative, wound cultures pending, continue vancomycin and Zosyn mild transaminitis CAD s/p ANTOINE 2014 HTN HLD DVT right lower extremity ruled out Right tib-fib x-ray negative Plan discussed with: Patient Date of Service: December 25, 2024 Billing Provider: JESSE CUEVA MD Common Visit Codes: [id number] INP/OBS CARE(HIGH) JESSE CUEVA MD December 25, 2024 11:58
[2024-12-26] VITALS (7 sets, daily range): BP systolic 118–137; BP diastolic 63–87; PULSE 61–75; RESP 17–18; TEMP 97.4–98.2; O2SAT 95–97
[2024-12-26 06:35] LABS: Basophils # (auto) 0 10 ^3/uL (0-0.2); Basophils % (auto) 0.6 % (0.0-2.0); Eosinophils # (auto) 0.3 10 ^3/uL (0-0.8); Eosinophils % (auto) 4.4 % (0.0-7.0); Hematocrit 43.6 % (41.0-53.0); Hemoglobin 15.1 g/dL (13.5-17.5); Lymphocytes # (auto) 2.2 10 ^3/uL (0.4-5.4); Lymphocytes % (auto) 30.4 % (10.0-50.0); Mean Corpuscular Hgb Conc. 34.7 g/dL (32.0-36.0); Mean Corpuscular Volume 92.2 fL (80.0-100.0); Monocytes # (auto) 0.5 10 ^3/uL (0-1.3); Monocytes % (auto) 7.3 % (0.0-12.0); Neutrophils # (auto) 4.1 10 ^3/uL (1.6-8.6); Neutrophils % (auto) 57.3 % (37.0-80.0); Nucleated Red Blood Cells % 0.1 %; Platelet Count (auto) 430 10^3/uL (140-450); Red Blood Cells 4.73 10^6/uL (4.5-5.90); Red Cell Distribution Width 12.9 % (11.8-14.3); White Blood Cell 7.1 10^3/uL (4.4-10.8)
--- NOTE | 2024-12-26 12:01 | DVHPN2 ---
Reviewed: Care Plan, H&P, Labs, Medications, Previous Orders, Radiology Changes from previous H/P or p: No Changes Musculoskeletal: leg pain Objective Vitals Vital Signs Date Time Temp Pulse Resp B/P (MAP) Pulse Ox O2 Delivery O2 Flow Rate FiO2 12/26/24 09:21 97.6 64 17 135/87 (103) 95 97.6 12/25/24 20:00 Room Air* 0 21 Intake/Output Intake and Output 12/26/24 07:00 Intake Total 1585 ml Output Total 2025 ml Balance -440 ml Intake Oral 885 ml IV Total 700 ml Output Urine Total 2025 ml # Bowel Movements 1 Medications Current Medications Medications Dose Ordered Sig/Amado Route Start Time Stop Time Status Last Admin Dose Admin Acetaminophen 650 mg Q6HP PRN PO 12/24/24 07:30 12/25/24 11:56 650 MG Vancomycin HCl 0 ml @ 0 mls/hr UD IV 12/24/24 07:30 Piperacillin Sod/ Tazobactam Sod 100 ml @ 25 mls/hr Q8HR IV 12/24/24 14:00 12/26/24 10:43 25 MLS/HR Aspirin 81 mg DAILY PO 12/24/24 10:00 12/26/24 10:46 81 MG Prasugrel 10 mg DAILY PO 12/24/24 10:00 Hold Atorvastatin Calcium 20 mg HS PO 12/24/24 22:00 12/25/24 22:00 20 MG Vancomycin HCl 250 ml @ 200 mls/hr Q12H IV 12/24/24 23:00 12/26/24 10:47 200 MLS/HR Laboratory Results Laboratory Tests 12/25/24 06:07 12/26/24 04:36 Urinalysis Test 12/24/24 07:35 Urine Color Light-yellow (Yellow) Urine Clarity Clear (Clear) Urine pH 5.5 (5.0-9.0) Urine Specific [place] 1.024 (1.001-1.035) Urine Protein Negative (Negative) Urine Ketones Negative (Negative) Urine Blood Negative /uL (Negative) Urine Nitrite Negative (Negative) Urine Bilirubin Negative (Negative) Urine Urobilinogen Normal mg/dL (Negative) Urine Leukocyte Esterase Negative /uL (Negative) Urine RBC 1 /hpf (0 - 3) Urine Microscopic WBC 1 /HPF (0-3) Urine Squamous Epithelial Cells None seen /hpf (<5) Urine Bacteria None seen /hpf (None Seen) Urine Glucose 4+ mg/dL (Normal) H Microbiology Microbiology Date/Time Source Procedure Growth Status 12/24/24 07:55 Leg Right Gram Stain Pending Resulted 12/24/24 07:55 Leg Right Wound Culture - Preliminary Resulted 12/24/24 05:12 Blood Blood Culture - Preliminary NO GROWTH AFTER 48 HOURS OF INCUBATION. Resulted Labs and/or images reviewed: Labs reviewed by me, Image(s) reviewed by me Assessment/Plan Assessment/Plan Covering for Dr Karan HE celreginaldtis: Blood cultures negative, wound cultures pending, continue vancomycin and Zosyn mild transaminitis CAD s/p ANTOINE 2014 HTN HLD DVT right lower extremity ruled out Right tib-fib x-ray negative Plan discussed with: Patient Date of Service: December 26, 2024 Billing Provider: JESSE CUEVA MD Common Visit Codes: [id number] INP/OBS CARE(HIGH) JESSE CUEVA MD December 26, 2024 12:01
[2024-12-27 01:00] VITALS: BP 130/77; PULSE 71; RESP 18; TEMP 98.3; O2SAT 97
[2024-12-27] MEDS: VANCOMYCIN 1.25gm/250mL PREMIX or KIT IV SCH (01:37)
[2024-12-27 05:00] VITALS: BP 126/76; PULSE 60; RESP 18; TEMP 98.4; O2SAT 98
[2024-12-27 06:03] LABS: Basophils # (auto) 0.1 10 ^3/uL (0-0.2); Basophils % (auto) 0.9 % (0.0-2.0); Eosinophils # (auto) 0.3 10 ^3/uL (0-0.8); Eosinophils % (auto) 4.2 % (0.0-7.0); Hematocrit 43.2 % (41.0-53.0); Hemoglobin 14.8 g/dL (13.5-17.5); Lymphocytes # (auto) 2.6 10 ^3/uL (0.4-5.4); Lymphocytes % (auto) 32.8 % (10.0-50.0); Mean Corpuscular Hemoglobin 31.7 pg (28.0-32.0); Mean Corpuscular Hgb Conc. 34.3 g/dL (32.0-36.0); Mean Corpuscular Volume 92.4 fL (80.0-100.0); Monocytes # (auto) 0.6 10 ^3/uL (0-1.3); Monocytes % (auto) 7.7 % (0.0-12.0); Neutrophils # (auto) 4.3 10 ^3/uL (1.6-8.6); Neutrophils % (auto) 54.4 % (37.0-80.0); Nucleated Red Blood Cells % 0.2 %; Platelet Count (auto) 440 10^3/uL (140-450); Red Blood Cells 4.67 10^6/uL (4.5-5.90); Red Cell Distribution Width 12.7 % (11.8-14.3); White Blood Cell 7.9 10^3/uL (4.4-10.8)
[2024-12-27 08:00] VITALS: PULSE 64; RESP 17; O2SAT 95
[2024-12-27 08:33] VITALS: BP 125/78; PULSE 65; RESP 17; TEMP 97.5; O2SAT 98
[2024-12-27] MEDS ORDERED: LEVO500T91 PO (10:37)
--- NOTE | 2024-12-27 10:40 | DVHDS2 ---
Discharge Summary Date of Admission December 24, 2024 at 07:26 Date of Discharge: December 27, 2024 Labs/Diagnostic Data: Laboratory Results Test 12/27/24 04:55 12/26/24 10:50 12/25/24 06:07 12/24/24 07:35 White Blood Count 7.9 10^3/uL (4.4-10.8) Red Blood Count 4.67 10^6/uL (4.5-5.90) Hemoglobin 14.8 g/dL (13.5-17.5) Hematocrit 43.2 % (41.0-53.0) Mean Corpuscular Volume 92.4 fL (80.0-100.0) Mean Corpuscular Hemoglobin 31.7 pg (28.0-32.0) Mean Corpuscular Hemoglobin Concent 34.3 g/dL (32.0-36.0) Red Cell Distribution Width 12.7 % (11.8-14.3) Platelet Count 440 10^3/uL (140-450) Mean Platelet Volume 6.9 fL (6.9-10.8) Neutrophils (%) (Auto) 54.4 % (37.0-80.0) Lymphocytes (%) (Auto) 32.8 % (10.0-50.0) Monocytes (%) (Auto) 7.7 % (0.0-12.0) Eosinophils (%) (Auto) 4.2 % (0.0-7.0) Basophils (%) (Auto) 0.9 % (0.0-2.0) Neutrophils # (Auto) 4.3 10 ^3/uL (1.6-8.6) Lymphocytes # (Auto) 2.6 10 ^3/uL (0.4-5.4) Monocytes # (Auto) 0.6 10 ^3/uL (0-1.3) Eosinophils # (Auto) 0.3 10 ^3/uL (0-0.8) Basophils # (Auto) 0.1 10 ^3/uL (0-0.2) Nucleated Red Blood Cells 0.2 % Creatinine 0.97 mg/dL (0.700-1.30) Glomerular Filtration Rate Calc 86 mL/min (>90) Vancomycin Level Trough 12.1 ug/mL (5-10) Differential Total Cells Counted 100.0 (100) Neutrophils % (Manual) 47 (37.0-80.0) Band Neutrophils % (Manual) 6 Lymphocytes % (Manual) 29 (10.0-50.0) Monocytes % (Manual) 9 (0-12) Eosinophils % (Manual) 7 (0-7) Basophils % (Manual) 0 (0.0-2.0) Metamyelocytes % (manual) 0 Myelocytes % (Manual) 0 Promyelocytes % (Manual) 0 Blast Cells % (Manual) 0 Reactive Lymphocytes 2 Platelet Estimate Adequate Red Blood Cell Morphology Normal Sodium Level 138 mmol/L (136-145) Potassium Level 4.1 mmol/L (3.5-5.1) Chloride Level 102 mmol/L (98-107) Carbon Dioxide Level 27 mmol/L (20-31) Anion Gap 9 (5-15) Blood Urea Nitrogen 14 mg/dL (9-23) BUN/Creatinine Ratio 16.7 (10.0-20.0) Serum Glucose 94 mg/dL (74-106) Calcium Level 9.5 mg/dL (8.7-10.4) Total Bilirubin 0.4 mg/dL (0.2-1.0) Aspartate Amino Transferase (AST) 40 U/L (13-40) Alanine Aminotransferase (ALT) 53 U/L (7-40) Alkaline Phosphatase 72 U/L (46-116) Total Protein 6.3 g/dL (5.7-8.2) Albumin 4.0 g/dL (3.2-4.8) Urine Color Light-yellow (Yellow) Urine Clarity Clear (Clear) Urine pH 5.5 (5.0-9.0) Urine Specific [place] 1.024 (1.001-1.035) Urine Protein Negative (Negative) Urine Ketones Negative (Negative) Urine Blood Negative /uL (Negative) Urine Nitrite Negative (Negative) Urine Bilirubin Negative (Negative) Urine Urobilinogen Normal mg/dL (Negative) Urine Leukocyte Esterase Negative /uL (Negative) Urine RBC 1 /hpf (0 - 3) Urine Microscopic WBC 1 /HPF (0-3) Urine Squamous Epithelial Cells None seen /hpf (<5) Urine Bacteria None seen /hpf (None Seen) Urine Glucose 4+ mg/dL (Normal) Test 12/24/24 05:12 Prothrombin Time 10.0 sec (9.3-11.8) Prothrombin Time INR 0.94 (0.9-1.15) Activated Partial Thromboplast Time 25.0 SEC (24.5-34.5) Hemoglobin A1c 5.5 % A1C (<5.7) Lactic Acid Level 1.8 mmol/L (0.4-2.0) Other Laboratory Tests 12/27/24 04:55 12/25/24 06:07 Brief Hx & Hospital Course: 64 M with CAD s/p PCI (2014), HTN, HLD with prior ED visit with cellulitis, was given bactrim with no improvement. Reported prior bathtub use. started on empiric psuedomonas coverage with zosyn and vanc. significant improvement. no exudates and prior coverage with bactrim, low likelyhood of mrsa. dc wit h oral levofloxacin. Condition at Discharge: Good Final Diagnosis/Problems List R LE celulitis cannot r/o pseudomonas mild transaminitis CAD s/p ANTOINE 2014 HTN HLD Discharge Disposition: Home Discharge Instruct/Medications Diet: Consistent carbohydrate, Cardiac 2g Na,low cholest Activity: No Restrictions, As Tolerated Follow Up/Referral: al clinic Medications: levo 14 days Discharge Statement: "Patient was advised to return to the ER or call 911 if any headaches, dizziness, shortness of breath, chest pain, abdominal pain, bleeding, fevers, or worsening of medical condition. Patient was counseled about treatment plan, medications, possible side effects, patientverbalized understanding. All questions were answered to the best of my ability. This discharge took greater then 30 minutes in planning, reviewing documentation, counseling the patient, and discussing with other team members." ASSESSMENT ASSESSMENT Assessment cellulitis possible pseudomonas Date of Service: December 27, 2024 Billing Provider: PHYLLIS ULRICH MD Common Visit Codes: [id number] DISCH DAY >30min PHYLLIS ULRICH MD December 27, 2024 10:40
[2024-12-27 11:35] VITALS: BP 134/77; PULSE 92; RESP 18; TEMP 36.4; O2SAT 96
== END 2024-12-27 12:20 | disposition home or self-care (01) | DRG 603 ==
LOC: ER 04:52 → OVERFLOW 07:26 → WEST WING 21:19
PROVIDERS: ADMIT Family Medicine; ATTEND Family Medicine
DX: L03.115 Cellulitis of right lower limb (principal); E11.9 Type 2 diabetes mellitus without complications; E78.5 Hyperlipidemia, unspecified; I11.0 Hypertensive heart disease with heart failure; I50.9 Heart failure, unspecified; I25.10 Atherosclerotic heart disease of native coronary artery without angina pectoris; R74.01 Elevation of levels of liver transaminase levels; Z79.82 Long term (current) use of aspirin; Z79.899 Other long term (current) drug therapy; Z83.3 Family history of diabetes mellitus; I25.2 Old myocardial infarction; Z95.5 Presence of coronary angioplasty implant and graft
CPT/HCPCS: 36415; 73590; 80053; 80202; 81001; 82565; 83036; 83605; 85007; 85025; 85027; 85610; 85730; 87040; 87205; 93971; 96365; G0378; J2543

== ENCOUNTER 2025-01-26 20:54 | Emergency (ER) | payer OTHER, MEDICAID ==
[~2025-01-26 20:54] MED LIST changes: -BACDST PO; +BENA-36 PO; +CARV3.1240 PO; +EMPA1TAB PO; +LEVO500T91 PO
== END 2025-01-26 21:21 | disposition left against medical advice (07) ==
LOC: ER 20:54
DX: T14.8XXA Other injury of unspecified body region, initial encounter (principal); Z53.21 Procedure and treatment not carried out due to patient leaving prior to being seen by health care provider; W57.XXXA Bitten or stung by nonvenomous insect and other nonvenomous arthropods, initial encounter; Y93.89 Activity, other specified; Y92.89 Other specified places as the place of occurrence of the external cause; Y99.8 Other external cause status